=== PATIENT | female | born 1975 | race Two or more races ===

== ENCOUNTER 2017-01-20 05:12 | Emergency (ER) | payer OTHER ==
[~2017-01-20] VITALS: Ht 165.1 cm; Wt 108.9 kg
[2017-01-20 06:21] VITALS: BP 128/82
[2017-01-20] MEDS ORDERED: cefTRIAXone SOD 1,000 MG VL IM ONE (06:30)
== END 2017-01-20 06:38 | disposition home or self-care (01) ==
LOC: ER 05:17
DX: K02.9 Dental caries, unspecified (principal); L03.211 Cellulitis of face
CPT/HCPCS: 96372; 99283; J0696